=== PATIENT | female | born 1995 | race Caucasian/White ===

== ENCOUNTER 2017-05-29 23:39 | Emergency (ER) | payer SELFPAY ==
[~2017-05-29] VITALS: Ht 175.3 cm; Wt 107.7 kg
[2017-05-29 23:43] VITALS: BP 121/72; TEMP 98.7
[2017-05-30 00:26] VITALS: PULSE 78
== END 2017-05-30 00:27 | disposition home or self-care (01) ==
LOC: COL.ER 23:39
DX: S61.031A Puncture wound without foreign body of right thumb without damage to nail, initial encounter (principal); Z23 Encounter for immunization; W46.1XXA Contact with contaminated hypodermic needle, initial encounter; Y92.531 Health care provider office as the place of occurrence of the external cause

== ENCOUNTER 2017-10-20 16:21 | Emergency (ER) | payer SELFPAY ==
[~2017-10-20] VITALS: Ht 177.8 cm; Wt 106.8 kg
[2017-10-20 16:23] VITALS: BP 140/70; PULSE 105; TEMP 98
== END 2017-10-20 17:10 | disposition home or self-care (01) ==
LOC: COL.ER 16:21
DX: S50.02XA Contusion of left elbow, initial encounter (principal); S70.02XA Contusion of left hip, initial encounter; W00.0XXA Fall on same level due to ice and snow, initial encounter; Y92.89 Other specified places as the place of occurrence of the external cause; Y99.0 Civilian activity done for income or pay

== ENCOUNTER 2018-02-05 21:06 | Emergency (ER) | payer OTHER ==
[~2018-02-05] VITALS: Ht 177.8 cm; Wt 104.5 kg
[2018-02-05 21:47] VITALS: BP 137/67; PULSE 84; TEMP 98.5
== END 2018-02-05 22:16 | disposition home or self-care (01) ==
LOC: COL.ER 21:06
DX: S53.402A Unspecified sprain of left elbow, initial encounter (principal); F17.210 Nicotine dependence, cigarettes, uncomplicated; X50.0XXA Overexertion from strenuous movement or load, initial encounter; Y92.89 Other specified places as the place of occurrence of the external cause; Y99.0 Civilian activity done for income or pay

== ENCOUNTER 2019-03-29 15:10 | Emergency (ER) | payer OTHER ==
[~2019-03-29] VITALS: Ht 180.3 cm; Wt 100.0 kg
[2019-03-29 15:22] VITALS: BP 123/75; TEMP 97.3
[2019-03-29 16:19] VITALS: PULSE 65
== END 2019-03-29 16:19 | disposition home or self-care (01) ==
LOC: COL.ER 15:10
DX: S93.401A Sprain of unspecified ligament of right ankle, initial encounter (principal); Y92.59 Other trade areas as the place of occurrence of the external cause

== ENCOUNTER 2021-06-07 22:25 | Emergency (ER) | payer MEDICAID ==
[~2021-06-07] VITALS: Ht 180.3 cm; Wt 129.5 kg
[2021-06-07 22:33] VITALS: TEMP 97.1
[2021-06-07 23:07] LABS: BASO % 0.2 % (0.0-2.0); EOS # 0.1 (0.0-0.7); EOS % 0.6 % (0-4.0); GRAN # 8.7 (1.4-6.5); GRAN % 75.6 % (42.2-75.2); LYMPH # 1.8 (1.2-3.4); LYMPH % 15.9 % (20.0-51.0); MEAN CELL VOLUME 91 fl (80.0-100.0); MEAN CORPUSCULAR HEMOGLOBIN 31 pg (27.0-31.0); MEAN CORPUSCULAR HGB CONC 35 g/dl (33.0-37.0); MEAN PLATELET VOLUME 9.4 fl (7.4-10.4); MONO # 0.8 (0.1-0.6); MONO % 7.2 % (1.7-9.3); PLATELET COUNT 239 K/mm3 (130-400); RED BLOOD COUNT 3.83 M/mm3 (4.10-5.30); REDCELL DISTRIBUTION WIDTH-CV 12.5 % (11.5-14.5)
[2021-06-07 23:08] LABS: HEMATOCRIT 34.8 % (37.0-47.0)
[2021-06-07 23:20] LABS: ALANINE AMINOTRANSFERASE 25 U/L (4-34); ALBUMIN 3.7 gm/dL (3.5-5.0); ALKALINE PHOSPHATASE 73 U/L (50-136); ANION GAP 5 mmol/L (7-16); AST,SGOT 28 U/L (15-37); BILIRUBIN,TOTAL 0.3 mg/dL (0.0-1.0); BLOOD UREA NITROGEN 9 mg/dL (7-17); CARBON DIOXIDE 27 mmol/L (22-30); CHLORIDE 104 mmol/L (98-107); CREATININE, serum 0.67 (0.52-1.25); GLUCOSE 84 mg/dL (74-106); POTASSIUM 3.5 mmol/L (3.4-5.0); SODIUM 136 mmol/L (137-145); TOTAL PROTEIN 6.7 gm/dL (6.4-8.2)
[2021-06-07 23:33] LABS: TROPONIN-I < 0.012 ng/mL (0.000-0.035)
[2021-06-08 02:11] VITALS: BP 111/54; PULSE 79
== END 2021-06-08 02:11 | disposition home or self-care (01) ==
LOC: COL.ER 22:25
PROVIDERS: Emergency Medicine
DX: O99.512 Diseases of the respiratory system complicating pregnancy, second trimester (principal); R06.02 Shortness of breath; R79.1 Abnormal coagulation profile; Z3A.21 21 weeks gestation of pregnancy
CPT/HCPCS: Q9967

== ENCOUNTER 2021-06-19 13:01 | Emergency (ER) | payer MEDICAID ==
[~2021-06-19] VITALS: Ht 180.3 cm; Wt 129.5 kg
[2021-06-19 13:10] VITALS: TEMP 98.5
[2021-06-19 14:17] LABS: BASO % 0.2 % (0.0-2.0); EOS # 0.1 (0.0-0.7); EOS % 0.5 % (0-4.0); GRAN # 9.5 (1.4-6.5); GRAN % 81.4 % (42.2-75.2); HEMOGLOBIN 12.1 g/dl (12.5-16.0); LYMPH # 1.4 (1.2-3.4); LYMPH % 11.7 % (20.0-51.0); MEAN CELL VOLUME 92 fl (80.0-100.0); MEAN CORPUSCULAR HEMOGLOBIN 32 pg (27.0-31.0); MEAN CORPUSCULAR HGB CONC 35 g/dl (33.0-37.0); MEAN PLATELET VOLUME 9.5 fl (7.4-10.4); MONO # 0.6 (0.1-0.6); MONO % 5.5 % (1.7-9.3); PLATELET COUNT 227 K/mm3 (130-400); RED BLOOD COUNT 3.82 M/mm3 (4.10-5.30); REDCELL DISTRIBUTION WIDTH-CV 12.5 % (11.5-14.5)
[2021-06-19 14:27] LABS: ALANINE AMINOTRANSFERASE 25 U/L (4-34); ALBUMIN 3.6 gm/dL (3.5-5.0); ALKALINE PHOSPHATASE 73 U/L (50-136); ANION GAP 6 mmol/L (7-16); AST,SGOT 27 U/L (15-37); BILIRUBIN,TOTAL 0.3 mg/dL (0.0-1.0); BLOOD UREA NITROGEN 7 mg/dL (7-17); CALCIUM 8.4 mg/dL (8.4-10.2); CARBON DIOXIDE 26 mmol/L (22-30); CHLORIDE 104 mmol/L (98-107); CREATININE, serum 0.67 (0.52-1.25); GLUCOSE 75 mg/dL (74-106); POTASSIUM 3.6 mmol/L (3.4-5.0); SODIUM 136 mmol/L (137-145); TOTAL PROTEIN 6.9 gm/dL (6.4-8.2)
[2021-06-19 14:39] LABS: TROPONIN-I < 0.012 ng/mL (0.000-0.035)
[2021-06-19 15:05] LABS: COLLECTION METHOD CLEAN CATCH
[2021-06-19 15:13] LABS: PH 6 (5-8); URINE APPEARANCE Clear; URINE BACTERIA None Seen /hpf; URINE BILIRUBIN Negative (NEGATIVE); URINE BLOOD Negative (NEGATIVE); URINE COLOR Straw; URINE GLUCOSE Negative (NEGATIVE); URINE KETONE Negative (NEGATIVE); URINE LEUKOCYTE ESTERASE Negative (NEGATIVE); URINE NITRATE Negative (NEGATIVE); URINE PROTEIN(semi-quant) Negative (NEGATIVE); URINE RBC 0-2 /hpf; URINE UROBILINOGEN Negative (NEGATIVE)
[2021-06-19 15:32] LABS: TSH w REFLEX 1.665 uIU/mL (0.350-4.940)
[2021-06-19 16:25] VITALS: BP 108/68; PULSE 73
== END 2021-06-19 16:30 | disposition home or self-care (01) ==
LOC: COL.ER 13:01
PROVIDERS: Emergency Medicine
DX: R00.2 Palpitations (principal); Z3A.22 22 weeks gestation of pregnancy; Z20.822 Contact with and (suspected) exposure to COVID-19

== ENCOUNTER 2021-10-15 21:28 | Outpatient (CLI) | payer MEDICAID ==
[~2021-10-15] VITALS: Ht 180.3 cm; Wt 149.1 kg
[2021-10-15] MEDS ORDERED: PNV TABS 20-11 EACH PO (22:20)
[2021-10-15 22:30] VITALS: BP 135/77; PULSE 107; TEMP 98.5
[2021-10-15 23:10] LABS: COLLECTION METHOD CLEAN CATCH
--- NOTE | 2021-10-15 23:17 | NUR ---
AT 39.5 WKS GESTATION TO LR4 WITH C/O FEVER TODAY OF 99.4, THEN 100.2, FEELING NAUSEATED, WITH NO EMESIS, AND A 10-20 SECOND EPISODE OF DIZZINESS THAT WAS ACCOMPANIED WITH HEART RACING, ALSO REPORTS HAVING A HEADACHE TODAY THAT WAS RELIEVED BY TYLENOL. PT REPORTS THAT SHE FEELS LIKE THE BABY HAS DROPPED AND HAS HAD LOTS OF PELVIC PRESSURE TODAY. PT DENIES VAGINAL BLEEDING OR LEAKING FLUID AND REPORTS GOOD ACTIVTY TODAY
[2021-10-15 23:20] LABS: PH 6 (5-8); SQUAMOUS EPITHELIAL 0-2 /hpf (0-10); URINE APPEARANCE Clear (CLEAR/HAZY); URINE BACTERIA None Seen /hpf (NONE SEEN); URINE BILIRUBIN Negative (NEGATIVE); URINE BLOOD Negative (NEGATIVE); URINE COLOR Yellow (YELLOW); URINE GLUCOSE Negative (NEGATIVE); URINE KETONE Negative (NEGATIVE); URINE LEUKOCYTE ESTERASE Negative (NEGATIVE); URINE NITRATE Negative (NEGATIVE); URINE PROTEIN(semi-quant) Negative (NEGATIVE); URINE RBC 0-2 /hpf (0-2); URINE UROBILINOGEN Negative (NEGATIVE); URINE WBC 0-2 /hpf (0-2)
--- NOTE | 2021-10-16 00:12 | NUR ---
EFM OFF, UP TO BATHROOM
--- NOTE | 2021-10-16 01:24 | NUR ---
IV FLUIDS INFUSED, IV SITE DC'D. DISCHARGE INSTRUCTIONS REVIEWED WITH PT AND , VERBALIZES GOOD UNDERSTANDING
--- NOTE | 2021-10-16 01:25 | NUR ---
DISMISSED AMBULATORY WITH
--- NOTE | 2021-10-16 01:26 | NUR ---
20G STARTED TO RIGHT HAND, LR BOLUS STARTED TO INFUSE TO GRAVITY
== END 2021-10-16 00:10 | disposition home health service (06) ==
LOC: LDRO 21:28 → LDR 22:09 → LDRO 10-16 00:10
PROVIDERS: Student in an Organized Health Care Education/Training Program
DX: O26.893 Other specified pregnancy related conditions, third trimester (principal); R42 Dizziness and giddiness; R50.9 Fever, unspecified; R11.0 Nausea; Z3A.39 39 weeks gestation of pregnancy
CPT/HCPCS: OP; J7120

== ENCOUNTER 2021-10-19 06:35 | Outpatient (CLI) | payer MEDICAID ==
[~2021-10-19] VITALS: Ht 180.3 cm; Wt 149.4 kg
[~2021-10-19 06:35] MED LIST: PNV TABS 20-11 EACH PO
--- NOTE | 2021-10-19 06:50 | NUR ---
0650- G1L0, 40.2 arrives on unit with c/o leaking of vaginal fluid at 0600 this am. Ambulatory to LDR1. Pt COVID+ 10/15/2021, with s/s starting 10/15/21 at 1730. Patient reports normal movement, and occasional contraction. Denies VB. 0656- EFM explained and placed x2. Tracing well. VS obtained. 0705- Amnitrace negative. SVE FT/30/-4, BOWI. Patient wedge right. Assessment complete.
[2021-10-19 07:00] VITALS: BP 121/77; PULSE 72; TEMP 98.3
[2021-10-19] MEDS ORDERED: PROTONIX20 MG PO (07:17)
[2021-10-19] MEDS ORDERED: OSCAL 500 TAB500 MG PO (07:18)
[2021-10-19] MEDS ORDERED: ASPIRIN 81M81 MG/TA2 PO (07:18)
--- NOTE | 2021-10-19 07:35 | NUR ---
0727- Dr. Paul updated on pt. See physician notification. 0740- EFM off and pt up to bathroom to change. Discharge instructions reviewed with pt who verbalize understanding. 0750- Ambulatory off unit to private vehicle.
[2021-10-19 07:40] VITALS: BP 116/78; PULSE 88
== END 2021-10-19 07:50 | disposition home or self-care (01) ==
LOC: LDRO 06:35 → LDR 07:24 → LDRO 07:50
DX: O34.63 Maternal care for abnormality of vagina, third trimester (principal); O98.513 Other viral diseases complicating pregnancy, third trimester; U07.1 COVID-19; Z3A.40 40 weeks gestation of pregnancy

== ENCOUNTER 2021-10-24 06:38 | Outpatient (CLI) | payer MEDICAID ==
[~2021-10-24] VITALS: Ht 172.7 cm; Wt 145.9 kg
[~2021-10-24 06:38] MED LIST changes: +ASPIRIN 81M81 MG/TA2 PO; +OSCAL 500 TAB500 MG PO; +PROTONIX20 MG PO
--- NOTE | 2021-10-24 06:45 | NUR ---
0645- G1L0, 41.0, arrives on unit with c/o ctx that started 4 days ago. Positive for movement. Denies any LOF or VB. 0650- EFM explained and placed. VS obtained and assessment completed. 0655- SVE 3. BOWI. Cervix anterior and soft. Plan of care reviewed with pt and family who verbalize understanding. 0707- Dr. Carranza updated on pt. See physician notification. 0755- SVE 3. Cervix anterior and soft. Dr. Carranza updated on pt. See physician notification. 0900- SVE 3 and unchanged. Plan of care reviewed with pt. 0909- Dr. Carranza updated on pt. Orders received. 0910- EFM off. 924- Discharge instructions reviewed with pt who verbalizes understanding. Ambulatory off unit with support person.
[2021-10-24 07:30] VITALS: BP 128/88; PULSE 78
[2021-10-24 08:00] VITALS: BP 119/76; PULSE 85
[2021-10-24 08:30] VITALS: BP 120/72; PULSE 72
[2021-10-24 09:00] VITALS: BP 125/76; PULSE 67
== END 2021-10-24 09:25 | disposition home or self-care (01) ==
LOC: LDRO 06:38 → LDR 06:50 → LDRO 09:25
DX: O62.9 Abnormality of forces of labor, unspecified (principal); Z3A.41 41 weeks gestation of pregnancy

== ENCOUNTER 2021-10-25 05:45 | Inpatient (IN) | payer MEDICAID ==
[~2021-10-25] VITALS: Ht 180.3 cm; Wt 145.9 kg
[2021-10-25] VITALS (10 sets, daily range): BP systolic 102–136; BP diastolic 56–93; PULSE 67–88; TEMP 97.9
--- NOTE | 2021-10-25 06:00 | NUR ---
ambulatory to unit for labor asessment, accompanied by significant other. Pt reports contractions continued since left yesterday. Pt reports "I got some sleep but about 0230 I had to take a shower. I felt a gush of fluid around 3:00" oriented to room, monitor, plan of care. SVE with no free fluid, amniotrace returns blue, 1cm/75%, no bloody show, pt reports "I took a shower again right before I came in"
--- NOTE | 2021-10-25 06:30 | NUR ---
Rests in bed, alert. Significant other at bedside.
--- NOTE | 2021-10-25 06:30 | NUR ---
Assumed care of patient. Rests in bed, alert. States having contractions. Assessment done, questions offered and answered.
[2021-10-25 09:46] LABS: BASO % 0.1 % (0.0-2.0); EOS # 0.1 K/mm3 (0.0-0.7); EOS % 0.6 % (0.0-4.0); GRAN # 9.7 K/mm3 (1.4-6.5); GRAN % 76.5 % (42.2-75.2); HEMOGLOBIN 12.7 g/dl (12.5-16.0); LYMPH # 2.1 K/mm3 (1.2-3.4); LYMPH % 16.3 % (20.0-51.0); MEAN CELL VOLUME 88 fl (80.0-100.0); MEAN CORPUSCULAR HEMOGLOBIN 31 pg (27-31); MEAN CORPUSCULAR HGB CONC 35 g/dl (33.0-37.0); MEAN PLATELET VOLUME 9.8 fl (7.4-10.4); MONO # 0.7 K/mm3 (0.1-0.6); MONO % 5.8 % (1.7-9.3); PLATELET COUNT 329 K/mm3 (130-400); RED BLOOD COUNT 4.12 M/mm3 (4.10-5.30); REDCELL DISTRIBUTION WIDTH-CV 12.6 % (11.5-14.5)
[2021-10-25 09:47] LABS: HEMATOCRIT 36.3 % (37.0-47.0)
--- NOTE | 2021-10-25 11:30 | NUR ---
1111- Pt's chief construction inspector at bedside, updated on POC, questions answered. Pt and chief construction inspector are wanting to do a "slow induction". Reiterated that Dr Carranza discussed staying and doing an induction since Pt is not in active labor or going home and returning when contracitons are stronger and more intense. Pt deciedes to stay and procede with induction. Pt on BB, EFM and TOCO on. Not tracing well due to maternal position. RN remains at bedside adjusting.
--- NOTE | 2021-10-25 12:00 | NUR ---
1134- FHR variability minimal variability, Pt repositioned to staning at side of bed. 1148- FHR variability moderate with accels, no decels. Pt up to void prior to starting Pitocin. 1154- Pitocin started at 2mu, discussed POC and questions answered.
--- NOTE | 2021-10-25 12:45 | NUR ---
1230- MD remains at bedside. Pt desires to be discharge home to labor with director orange. Pitocin off. 1234- FHR deceleration noted, down to 100 bpm, lasting approx, 120 sec. Head of bed elevated. 1241- Pt repositioned to . MD discussed POC and recommendation. FHR minimal variability noted. 1247- Dr Carranza and this RN at bedside. Discusses strip and concerns with Pt, recommends Pt stay for induction of labor. Pt desires a few minutes to think about decision. Pt repositioned by this RN to WR. and this RN to nurses station to monitor FHR.
--- NOTE | 2021-10-25 13:00 | NUR ---
1300- FHR minimal variability noted with possible subtle fhr decels. Dr Santana and this RN at bedside. MD continues to recommend Pt stay for induction. Pt desire to be discharged home and return in active labor. See physician notification. Pt agrees to stay for FM to see if we can get baby more reactive prior to discharge. Pt request to use bathroom then stand at side of bed.
--- NOTE | 2021-10-25 13:28 | NUR ---
1308- EFM and TOCO on and tracing well. Pt standing at side of bed, Moderate variability. Marker button given to Pt and encouraged to press when contraction start, button tested, Pt verbalizes understanding. 1327- Dr Murray verma at nurses station, monitoring strip. Gives verbal order that Pt may discharge home. RN to bedside to update Pt. EFM and TOCO off. IV out without difficulty. Pt instructed ot change into street clothes. 1345- Discharge paperwork given and explained, labor precautions provided, Pt denies questions. 1350- Pt ambulates off unit in stable condition with suede brusher.
== END 2021-10-25 13:50 | disposition home or self-care (01) | DRG 831 ==
LOC: LDRO 05:45 → LDR 09:00
PROVIDERS: ADMIT Student in an Organized Health Care Education/Training Program
PROC: 3E033VJ Introduction of Other Hormone into Peripheral Vein, Percutaneous Approach (ICD-10-PCS; principal; 2021-10-25)
DX: O48.0 Post-term pregnancy (principal); U07.1 COVID-19; O98.513 Other viral diseases complicating pregnancy, third trimester; O99.820 Streptococcus B carrier state complicating pregnancy; O99.213 Obesity complicating pregnancy, third trimester; O99.613 Diseases of the digestive system complicating pregnancy, third trimester; K21.9 Gastro-esophageal reflux disease without esophagitis; O36.8330 Maternal care for abnormalities of the fetal heart rate or rhythm, third trimester, not applicable or unspecified; Z3A.41 41 weeks gestation of pregnancy
CPT/HCPCS: J2540; J2590; J7120

== ENCOUNTER 2021-10-27 02:27 | Outpatient (CLI) | payer MEDICAID ==
[~2021-10-27] VITALS: Ht 180.3 cm; Wt 145.6 kg
--- NOTE | 2021-10-27 03:00 | NUR ---
0240 G1 at 41.3 weeks gestation to LDR2 with c/o regular contractions and decreased movement, she states that she has been "having contractions for 3 days and would like to check her progess and make sure her baby is ok". She denies LOF or vaginal bleeding. EFMs explained and applied. FHR 140 with minimal variability for first 12 minutes of FHR tracing. SVE at 0250, 2-3/80/-2 which is unchanged from previous exams. During SVE FHR down to 135 bpm for 40 seconds with a spontaneous return to baseline of 140 bpm. Patient positioned to left side, FHR variability moderate and audible movement heard by the patient and this nurse. Patient expresses reassurance. Plan of care reviewed.
[2021-10-27 03:15] VITALS: BP 117/61; PULSE 84; TEMP 98.3
--- NOTE | 2021-10-27 03:50 | NUR ---
Patient tearful and breathing through contractions, SVE without change from previous exam. Reviewed early labor vs active labor and patient states understanding.
--- NOTE | 2021-10-27 04:30 | NUR ---
0356 - 0409 FHR with minimal variabilty, patient sitting upright on the edge of the bed. 0409 patient to bathroom to collect UA. 0420 Patient back to bed, she request to stay sitting on the edge of the bed, FHR continues with minimal variability. Variability discussed with patient, patient encouraged to lie on left side but states "this is the only way that I am comfortable and don't have contractions". Patient reports that contractions have spaced out and are not as strong, she states that she is tired and "just wants to sleep while she can".
[2021-10-27 04:57] LABS: COLLECTION METHOD CLEAN CATCH
[2021-10-27 05:04] LABS: MUCOUS Present (NOT PRESENT); PH 6 (5-8); SQUAMOUS EPITHELIAL 0-2 /hpf (0-10); URINE APPEARANCE Clear (CLEAR/HAZY); URINE BACTERIA None Seen /hpf (NONE SEEN); URINE BILIRUBIN Negative (NEGATIVE); URINE BLOOD Negative (NEGATIVE); URINE COLOR Yellow (YELLOW); URINE GLUCOSE Negative (NEGATIVE); URINE KETONE Trace (NEGATIVE); URINE LEUKOCYTE ESTERASE Negative (NEGATIVE); URINE NITRATE Negative (NEGATIVE); URINE PROTEIN(semi-quant) Negative (NEGATIVE); URINE RBC 0-2 /hpf (0-2); URINE UROBILINOGEN Negative (NEGATIVE); URINE WBC 0-2 /hpf (0-2)
--- NOTE | 2021-10-27 05:40 | NUR ---
0504 Patient back to bed from bathroom, encouraged to lie on side and patient accepts. Patient positioned to right side. FHR with moderate variability, no accels or decels noted. UA results WNL and discussed with patient. 0520 Dr. Carranza called to review FHR tracing, after reviewing tracing Dr. Carranza orders IVF and extended FHR monitoring. 0525 Plan of care reviewed with patient including the physician's order to start an IV and receive an IVF bolus and further evaluation of the baby's heart rate. Patient states "no, I just want to leave. I am tired and have not slept in 3 days, I feel like I can finally sleep and I need to be home". Advised patient that she could sleep while getting IVF, discussed the recommendation for IVF due to a decrease in FHR variability and her report of decreased movement at home. Patient advised that leaving the hospital wihtout further evaluation would be against medical advice. Patient wishes to leave. Dr. Carranza notified. 0540 Informed consent to refuse treatment reviewed with patient including the recommendation for extended monitoring with possible delivery of baby and IV fluid resuscitation for non-reactive FHTs. The risk of refusal was reviewed including worsening of condition and possible of mother and/or baby. Informed consent signed by patient and patient off unit against medical advice at 0542.
[2021-10-27] MEDS ORDERED: TYLENOL 500MG500 MG PO (11:19)
[2021-10-27] MEDS ORDERED: BENADRYL25 M2 PO (11:20)
[2021-10-28] MEDS ORDERED: IBU800 M1 PO (11:14)
[2021-10-28] MEDS ORDERED: PERCOCET 325 MG1 TA2 PO (11:14)
== END 2021-10-27 05:42 | disposition left against medical advice (07) ==
LOC: LDRO 02:27
PROVIDERS: Student in an Organized Health Care Education/Training Program
DX: Z34.93 Encounter for supervision of normal pregnancy, unspecified, third trimester (principal); Z3A.41 41 weeks gestation of pregnancy

== ENCOUNTER 2021-10-27 10:42 | Inpatient (IN) | payer MEDICAID ==
[~2021-10-27] VITALS: Ht 180.3 cm; Wt 145.6 kg
[2021-10-27] VITALS (35 sets, daily range): BP systolic 115–159; BP diastolic 60–91; PULSE 64–100; TEMP 97.7–98.7
[2021-10-27] MEDS ORDERED: TYLENOL 500MG500 MG PO (11:19)
[2021-10-27] MEDS ORDERED: BENADRYL25 M2 PO (11:20)
--- NOTE | 2021-10-27 12:53 | NUR ---
1253- Roles on unit. Reviews FHR monitor. 1300- Roles in to see patient who is standing at bedside. Discusses FHR strip and options with ptaient. Patient and MD decide to start pitocin and get admitted. 1320-Consents reviewed and signed. 1330-IV to right hand, blood collected for lab, see orders. 1343-IVF and taylor G for GBS + protocol, see EMAR. Roles in to room and gives order for IVF bolus of 500ml LR now, started. 1430-Pitocin started per protocol. 1435-[place] changed out due to difficulty tracing contractions.
[2021-10-27 14:01] LABS: BASO % 0.2 % (0.0-2.0); EOS # 0.1 K/mm3 (0.0-0.7); EOS % 0.4 % (0.0-4.0); GRAN # 9.7 K/mm3 (1.4-6.5); GRAN % 79.7 % (42.2-75.2); HEMOGLOBIN 12.4 g/dl (12.5-16.0); LYMPH # 1.5 K/mm3 (1.2-3.4); LYMPH % 12.7 % (20.0-51.0); MEAN CELL VOLUME 89 fl (80.0-100.0); MEAN CORPUSCULAR HEMOGLOBIN 31 pg (27-31); MEAN CORPUSCULAR HGB CONC 34 g/dl (33.0-37.0); MEAN PLATELET VOLUME 9.9 fl (7.4-10.4); MONO # 0.8 K/mm3 (0.1-0.6); MONO % 6.7 % (1.7-9.3); PLATELET COUNT 329 K/mm3 (130-400); RED BLOOD COUNT 4.06 M/mm3 (4.10-5.30); REDCELL DISTRIBUTION WIDTH-CV 12.6 % (11.5-14.5)
[2021-10-27 14:13] LABS: HEMATOCRIT 36.1 % (37.0-47.0)
--- NOTE | 2021-10-27 17:30 | NUR ---
173-Patient standing at bedside. Reports fluid trickling on leg. Amnitest +, Sits to chair. Becomes nauseated with pain. 250ml clear green fluid emesis. Gush of fluid on chucks, clear to pink tinged. Requests epidural. ALBINA Guzman notified. IVF Bolus started. 1754-ALBINA Guzman to room. patient transfers to bed. Sitting up on bedside for epidural placement. Difficulty tracing FHR due to positioning. 1808-Test dose administered by ALBINA Guzman, patient tolerates procedure well.VSS. Winnie RN assumes care of patient. Bedside shift report given.
--- NOTE | 2021-10-27 18:20 | NUR ---
Assisted to SF, pt requests to be sitting more upright, explained reasons not to sit up in [facility], verbalizes understanding. Reviewed plan of care with pt and hr operations advisor, questions invited and answered.
--- NOTE | 2021-10-27 18:48 | NUR ---
FHT's to 80's-90's while supine for amin catheter placement, SVE. Returns to 120's when HOB raised. then back down to 80's-90's with peak of next contraction. To WL, returns to baseline 140's.
--- NOTE | 2021-10-27 21:50 | NUR ---
Pt states "I really feel like I need to pee" Amin catheter with 100ccc dark yellow urine in bag, red tinged at top of tubing. Pt repositoned, amin bag repostioned, amin bulb deflated, catheter inserted further, bulb re-inflated. No movement in urine in tubing. Amin catheter dc'd. New amin catheter placed, scant red tinged urine return,2200 Placement checked with SVE. SVE with no changes noted since 1899 exam 4
--- NOTE | 2021-10-27 22:35 | NUR ---
Roles into room, SVE unchanged. Dr Stack discusses plan of care with pt. IUPC placed.
--- NOTE | 2021-10-27 23:25 | NUR ---
Roles into room, SVE with no changes noted. Dr Stack discusses C/S with pt, pitocin gtt off. 2331 To C/S room via bed.
[2021-10-28] VITALS (18 sets, daily range): BP systolic 100–144; BP diastolic 58–86; PULSE 66–95; TEMP 97.6–98.8
--- NOTE | 2021-10-28 01:10 | NUR ---
Able to move feet and slightly bend knees.
--- NOTE | 2021-10-28 02:05 | NUR ---
0205 IV TO INT. PERICARE DONE AND ABD BINDER ON. MOVES WELL FROM SIDE TO SIDE AND MOVES SELF UP IN BED WITH NO ASSIST. REG DIET TAKEN AND REBECA WELL. NO C/O PAIN AT THIS TIME EXCEPT MINIMAL PAIN WITH MOVEMENT
--- NOTE | 2021-10-28 09:13 | NUR ---
Initial visit; Parents thanked Gregory for offering congratulations and God's blessings for the of their daughter. Supervisor [employer] thanked family for choosing [facility].
[2021-10-28] MEDS ORDERED: IBU800 M1 PO (11:14)
[2021-10-28] MEDS ORDERED: PERCOCET 325 MG1 TA2 PO (11:14)
[2021-10-29 04:00] VITALS: BP 120/78; PULSE 82; TEMP 98.1
[2021-10-29 07:30] VITALS: BP 106/59; PULSE 72; TEMP 97.3
[2021-10-29 17:04] VITALS: BP 125/77; PULSE 67; TEMP 98.1
[2021-10-29 18:30] VITALS: BP 130/77; PULSE 67; TEMP 98
--- NOTE | 2021-10-29 23:52 | NUR ---
PT COMPLAINS OF SWELLING/TIGHTNESS IN THIGHS AFTER STANDING UP FOR A WHILE. THIS RN TESTED HOMANS SIGN AND PT. HAS NO PAIN IN LEGS. PROPPED LEGS UP WITH PILLOWS AND TOLD PT. TO CALL IF GET WORSE. WILL CONTINUE TO MONITOR.
[2021-10-30 04:00] VITALS: BP 114/66; PULSE 71; TEMP 98.1
--- NOTE | 2021-10-30 05:42 | NUR ---
0540 started parents on education videos.
[2021-10-30 08:12] VITALS: BP 130/81; PULSE 73; TEMP 97.2
== END 2021-10-30 12:25 | disposition home or self-care (01) | DRG 788 ==
LOC: OB 10:52 → LDR 13:16 → OB 10-28 00:54
PROVIDERS: Obstetrics & Gynecology; ADMIT Student in an Organized Health Care Education/Training Program
PROC: 3E033VJ Introduction of Other Hormone into Peripheral Vein, Percutaneous Approach (ICD-10-PCS; 2021-10-27)
PROC: 10D00Z1 Extraction of Products of Conception, Low, Open Approach (ICD-10-PCS; principal; 2021-10-28)
DX: O48.0 Post-term pregnancy (principal); Z3A.41 41 weeks gestation of pregnancy; O99.824 Streptococcus B carrier state complicating childbirth; O62.0 Primary inadequate contractions; O77.0 Labor and delivery complicated by meconium in amniotic fluid; O99.213 Obesity complicating pregnancy, third trimester; O99.62 Diseases of the digestive system complicating childbirth; K21.9 Gastro-esophageal reflux disease without esophagitis; Z37.0 Single live birth; Z86.16 Personal history of COVID-19
CPT/HCPCS: J0171; J0690; J1885; J2400; J2405; J2540; J2590; J2704; J3010; J7120

== ENCOUNTER 2022-02-05 19:54 | Emergency (ER) | payer MEDICAID ==
[~2022-02-05] VITALS: Ht 180.3 cm; Wt 131.8 kg
[~2022-02-05 19:54] MED LIST changes: +BENADRYL25 M2 PO; +IBU800 M1 PO; +PERCOCET 325 MG1 TA2 PO; +TYLENOL 500MG500 MG PO
[2022-02-05 20:02] VITALS: TEMP 98.7
[2022-02-05 20:38] LABS: BASO % 0.1 % (0.0-2.0); EOS % 0.3 % (0.0-4.0); GRAN # 8.3 K/mm3 (1.4-6.5); GRAN % 76.1 % (42.2-75.2); HEMOGLOBIN 11.6 g/dl (12.5-16.0); LYMPH # 1.8 K/mm3 (1.2-3.4); LYMPH % 16.2 % (20.0-51.0); MEAN CELL VOLUME 87 fl (80.0-100.0); MEAN CORPUSCULAR HEMOGLOBIN 29 pg (27-31); MEAN CORPUSCULAR HGB CONC 33 g/dl (33.0-37.0); MEAN PLATELET VOLUME 9.4 fl (7.4-10.4); MONO # 0.8 K/mm3 (0.1-0.6); MONO % 7.1 % (1.7-9.3); PLATELET COUNT 245 K/mm3 (130-400); RED BLOOD COUNT 4.06 M/mm3 (4.10-5.30); REDCELL DISTRIBUTION WIDTH-CV 12.4 % (11.5-14.5)
[2022-02-05 20:40] LABS: HEMATOCRIT 35.1 % (37.0-47.0)
[2022-02-05 20:54] LABS: ALBUMIN 3.5 gm/dL (3.5-5.0); BILIRUBIN,TOTAL 0.3 mg/dL (0.2-1.2); CALCIUM 8.5 mg/dL (8.4-10.2); CREATININE, serum 0.84 mg/dL (0.57-1.11); POTASSIUM 3.1 mmol/L (3.5-4.5); TOTAL PROTEIN 6.9 gm/dL (6.2-8.1)
[2022-02-05] MEDS ORDERED: K-DUR20 MEQ PO (21:03)
[2022-02-05 21:19] VITALS: BP 142/78; PULSE 76
== END 2022-02-05 21:19 | disposition home or self-care (01) ==
LOC: COL.ER 19:54
PROVIDERS: Emergency Medicine
DX: L02.31 Cutaneous abscess of buttock (principal); E87.6 Hypokalemia; Z28.310 Unvaccinated for COVID-19

== ENCOUNTER 2022-03-13 16:19 | Emergency (ER) | payer MEDICAID ==
[~2022-03-13 16:19] MED LIST changes: +K-DUR20 MEQ PO
[2022-03-13 16:21] VITALS: TEMP 98.7
[2022-03-13 16:57] LABS: BASO % 0.1 % (0.0-2.0); EOS # 0.1 K/mm3 (0.0-0.7); EOS % 0.8 % (0.0-4.0); GRAN # 7.8 K/mm3 (1.4-6.5); GRAN % 74.7 % (42.2-75.2); HEMATOCRIT 37.2 % (37.0-47.0); HEMOGLOBIN 12.5 g/dl (12.5-16.0); LYMPH # 1.7 K/mm3 (1.2-3.4); LYMPH % 16.8 % (20.0-51.0); MEAN CELL VOLUME 84 fl (80.0-100.0); MEAN CORPUSCULAR HEMOGLOBIN 28 pg (27-31); MEAN CORPUSCULAR HGB CONC 34 g/dl (33.0-37.0); MEAN PLATELET VOLUME 9.6 fl (7.4-10.4); MONO # 0.7 K/mm3 (0.1-0.6); MONO % 7.1 % (1.7-9.3); PLATELET COUNT 248 K/mm3 (130-400); RED BLOOD COUNT 4.41 M/mm3 (4.10-5.30); REDCELL DISTRIBUTION WIDTH-CV 13.2 % (11.5-14.5)
[2022-03-13 17:14] LABS: ALANINE AMINOTRANSFERASE 28 U/L (0-55); ALBUMIN 3.5 gm/dL (3.5-5.0); ALKALINE PHOSPHATASE 97 U/L (40-150); ANION GAP 13 mmol/L (7-16); AST,SGOT 39 U/L (5-34); BILIRUBIN,TOTAL 0.4 mg/dL (0.2-1.2); BLOOD UREA NITROGEN 14 mg/dL (7-19); CALCIUM 9.2 mg/dL (8.4-10.2); CARBON DIOXIDE 21 mmol/L (22-29); CHLORIDE 107 mmol/L (98-107); CREATININE, serum 0.85 mg/dL (0.57-1.11); GLUCOSE 117 mg/dL (70-99); POTASSIUM 3.6 mmol/L (3.5-4.5); SODIUM 141 mmol/L (136-145); TOTAL PROTEIN 7.1 gm/dL (6.2-8.1)
[2022-03-13 17:22] LABS: TROPONIN-I < 0.010 ng/mL (0.00-0.033)
[2022-03-13 17:51] VITALS: BP 134/79; PULSE 72
== END 2022-03-13 18:15 | disposition home or self-care (01) ==
LOC: COL.ER 16:19
PROVIDERS: Physician Assistant
DX: R07.89 Other chest pain (principal); Z28.310 Unvaccinated for COVID-19

== ENCOUNTER → 2024-07-19 | Outpatient (CLI) | payer OTHER ==
[~2024-07-19] MED LIST changes: +Gadoterate 5 ML VIAL IV ONE; +Iohexol 300 - 10 ML VIAL IV ONE
== END ==
LOC: COL.RAD 08:45
DX: M67.911 Unspecified disorder of synovium and tendon, right shoulder (principal)
CPT/HCPCS: A9575; Q9967